=== PATIENT | female | born 1950 | race Caucasian/White ===

== ENCOUNTER 2020-10-24 15:52 | Emergency (ER) | payer MEDICARE, MEDICAID, SELFPAY ==
--- NOTE | ~2020-10-24 | XR_ITS ---
EXAMINATION: XR chest 2V DATE: 10/24/2020 16:58 INDICATION: Shortness of breath and chest pain. TECHNIQUE: Frontal and lateral views of the chest were obtained. COMPARISON: Chest 2 views 09/24/2019 FINDINGS: There is mild scarring at the lung apices. No pleural effusion or pneumothorax. The heart s ize is normal. IMPRESSION: 1. Mild scarring at the lung apices. Reviewed, dictated and finalized at location A. [facility]
--- NOTE | 2020-10-24 15:59 | ED.GENADULT ---
HPI - General Adult General Chief complaint: Shortness of Breath/Dyspnea Stated complaint: COPD Flair Time Seen by Provider: 10/24/20 15:59 Source: patient Mode of arrival: ambulatory Limitations: no limitations History of Present Illness HPI narrative: 70-year-old female patient presents to the [facility] with complaints of shortness of breath for the past week. Patient states she quit smoking about a week and half ago. Patient does have history of COPD. Patient states she has had a cough and does cough some stuff up at times. Patient states she has an inhaler along with a breathing machine at home that she has been using but has not been helping. Patient does also report some chest pain in the middle of her chest and states that her chest does hurt when taking in a deep breath. Patient states that she was out shopping today and states that when she was up walking around she got even more short of breath and states she could barely make it back to her car. Denies any contact with [employer] that she is aware of. Patient does not report having Covid the last 3 months. Related Data Home Medications Medication Instructions Recorded Confirmed alendronate [Fosamax] 70 mg PO WEEKLY 09/24/19 10/24/20 budesonide-formoterol [Symbicort] 2 puff INHALATION Q12H 09/24/19 10/24/20 buspirone 10 mg PO BID 09/24/19 10/24/20 cyanocobalamin (vitamin B-12) 100 mcg PO DAILY 09/24/19 10/24/20 diclofenac sodium 75 mg PO BID 09/24/19 10/24/20 hydrocodone-acetaminophen [[place]] 1 tablet PO HS PRN 09/24/19 10/24/20 lisinopril 2.5 mg PO DAILY 09/24/19 10/24/20 metformin 850 mg PO BID 09/24/19 10/24/20 metoprolol tartrate [Lopressor] 100 mg PO Q12H 09/24/19 10/24/20 mometasone [Elocon] 1 applic TOPICAL DAILY 09/24/19 10/24/20 sertraline 50 mg PO DAILY 09/24/19 10/24/20 simvastatin 40 mg PO DAILY 09/24/19 10/24/20 suvorexant 20 mg PO HS 09/24/19 10/24/20 tiotropium bromide [Spiriva with 1 cap INHALATION DAILY 09/24/19 10/24/20 HandiHaler] trazodone 50 mg PO HS PRN 09/24/19 10/24/20 cyclobenzaprine 10 mg PO DAILY 10/24/20 10/24/20 gabapentin 300 mg PO DAILY 10/24/20 10/24/20 meloxicam 15 mg PO DAILY 10/24/20 10/24/20 trazodone 150 mg PO HS 10/24/20 10/24/20 varenicline [Chantix] 2 mg PO DAILY 10/24/20 10/24/20 venlafaxine 75 mg PO DAILY 10/24/20 10/24/20 venlafaxine 150 mg PO DAILY 10/24/20 10/24/20 Allergies Allergy/AdvReac Type Severity Reaction Status Date / Time No Known Allergies Allergy Verified 10/24/20 16:26 Review of Systems Review of Systems: Narrative: CONSTITUTIONAL: Denies fever, chills, or sweats. EYES: Denies visual changes, redness, or discharge. ENT: Denies rhinorrhea, congestion, sore throat, or otalgia. CARDIOVASCULAR: Positive nonradiating midsternal chest pain, denies palpitations, or edema. RESPIRATORY: Positive cough and dyspnea. GASTROINTESTINAL: Denies abdominal pain, nausea, vomiting, or diarrhea. GENITOURINARY: Denies dysuria or hematuria. SKIN: Denies rash or itching. MUSCULOSKELETAL: Denies back pain, joint pain, or myalgia. NEUROLOGIC: Denies headache, numbness, or weakness. PSYCHIATRIC: Denies anxiety or depression. [facility] Past Medical History Medical History COPD (chronic obstructive pulmonary disease) Comments At the time of my signature I agree with nursing past medical history, surgical, social, and family history. There is no relevant family history pertinent to the presenting complaint. Exam Narrative: Exam Narrative: GENERAL: Well-appearing, well-nourished, and in no acute distress. HEAD: Normocephalic, atraumatic. EYES: PERRLA and EOMI. ENT: Nares clear, no rhinorrhea or epistaxis. Mucous membranes moist. NECK: Supple. No lymphadenopathy CHEST: Patient has slight expiratory wheezing noted to the right upper lobe and right lower lobe. Patient is talking in broken sentences and does appear to have some labored breathing while sitting in the chair. HEART:
[2020-10-24 16:10] VITALS: BP 172/79; PULSE 91; RESP 28; TEMP 36.7; O2SAT 98
--- NOTE | 2020-10-24 16:26 | ECG_ITS ---
Measurements Intervals [place] Rate: 90 P: 48 FL: 141 QRS: -5 QRSD: 92 T: 18 QT: 378 QTc: 464 Interpretive Statements SINUS RHYTHM BORDERLINE T WAVE ABNORMALITY- INFERIOR LEADS BASELINE ARTIFACT- I, II, III, V6 BORDERLINE ECG Electronically Signed On 10-24-2020 19:18:45 [employer] CLERK by Ronak Coyne D.O.
[2020-10-24] MEDS: ALBUTEROL SULFATE NEB 2.5 MG/3 ML INH INHALATION (17:03)
[2020-10-24] MEDS: IPRATROPIUM BR 0.02% INH SOLN 0.5 MG/2.5 ML VIAL INHALATION (17:04)
[2020-10-24 17:35] VITALS: PULSE 90; RESP 20; O2SAT 98
[2020-10-25 18:46] LABS: SARS-CoV-2 RNA PCR Negative
== END 2020-10-24 17:45 | disposition home or self-care (01) ==
PROVIDERS: Emergency Provider Nurse Practitioner Family; PCP Nurse Practitioner Family
DX: J44.1 Chronic obstructive pulmonary disease with (acute) exacerbation (principal); Z20.822 Contact with and (suspected) exposure to COVID-19; E78.00 Pure hypercholesterolemia, unspecified; I10 Essential (primary) hypertension; K21.9 Gastro-esophageal reflux disease without esophagitis; F41.9 Anxiety disorder, unspecified
CPT/HCPCS: 71046; 87426; 93005; 94640; 99213; C9803; G0463; U0003; U0005

== ENCOUNTER 2021-10-13 15:40 | Emergency (ER) | payer MEDICARE, OTHER, SELFPAY ==
[2021-10-13 15:50] VITALS: BP 139/73; PULSE 80; RESP 20; TEMP 36.7; O2SAT 95
--- NOTE | 2021-10-13 16:54 | ED.URI ---
HPI - URI/Sore Throat General Chief Complaint: Upper Respiratory Infection Stated Complaint: cough sore throat runny nose Source: patient and family History of Present Illness HPI Narrative: Patient presents with a nonproductive cough no shortness of breath no chest pain and upper respiratory symptoms for the past week. Patient complains of a cough that is worse at night. He keeps her up. MD elicited complaint: cough Able to tolerate fluids by mouth: Yes Related Data Home Medications Medication Instructions Recorded Confirmed alendronate [Fosamax] 70 mg PO WEEKLY 09/24/19 10/24/20 budesonide-formoterol [Symbicort] 2 puff INHALATION Q12H 09/24/19 10/24/20 cyanocobalamin (vitamin B-12) 100 mcg PO DAILY 09/24/19 10/24/20 diclofenac sodium 75 mg PO BID 09/24/19 10/24/20 hydrocodone-acetaminophen [[place]] 1 tablet PO TID PRN 09/24/19 10/24/20 lisinopril 2.5 mg PO DAILY 09/24/19 10/24/20 metformin 850 mg PO BID 09/24/19 10/24/20 metoprolol tartrate [Lopressor] 100 mg PO Q12H 09/24/19 10/24/20 simvastatin 40 mg PO DAILY 09/24/19 10/24/20 tiotropium bromide [Spiriva with 1 cap INHALATION DAILY 09/24/19 10/24/20 HandiHaler] trazodone 50 mg PO HS PRN 09/24/19 10/24/20 Adults Multivitamin 1 tablet PO DAILY 10/24/20 10/24/20 Natural Vitamin E 1 tablet PO DAILY 10/24/20 10/24/20 Prilosec 20 mg PO DAILY 10/24/20 10/24/20 albuterol sulfate 2.5 mg INHALATION Q8H PRN 10/24/20 10/24/20 buspirone 15 mg PO DAILY 10/24/20 10/24/20 calcium carb and citrate-vitD3 1 tablet PO BID 10/24/20 10/24/20 cyclobenzaprine 10 mg PO DAILY 10/24/20 10/24/20 fluticasone propionate [Flonase] 2 spray INTRANASAL DAILY 10/24/20 10/24/20 gabapentin 300 mg PO DAILY 10/24/20 10/24/20 ipratropium bromide 0.5 mg INHALATION Q8H PRN 10/24/20 10/24/20 meloxicam 15 mg PO DAILY 10/24/20 10/24/20 milk thistle 150 mg PO DAILY 10/24/20 10/24/20 trazodone 150 mg PO HS 10/24/20 10/24/20 varenicline [Chantix] 2 mg PO DAILY 10/24/20 10/24/20 venlafaxine 75 mg PO DAILY 10/24/20 10/24/20 venlafaxine 150 mg PO DAILY 10/24/20 10/24/20 captopril 50 1 tablet PO DAILY 04/01/21 mg-hydrochlorothiazide 25 mg tablet clindamycin phosphate 1 % topical 1 applic TOPICAL DAILY 04/01/21 gel famotidine 20 mg tablet 20 mg PO DAILY 04/01/21 ketorolac 0.5 % eye drops 1 drp EACH EYE Q8H 04/01/21 methylprednisolone 4 mg tablets in See Rx Instructions PO PER PKG DIR 04/01/21 a dose pack naloxone 4 mg/actuation nasal spray 4 mg INTRANASAL Q2M 04/01/21 nicotine 10 mg/mL nasal spray 1 spray INTRANASAL Q10M 04/01/21 omeprazole 20 mg capsule,delayed 20 mg PO DAILY 04/01/21 release tizanidine 4 mg capsule 4 mg PO QHS 04/01/21 triamcinolone acetonide 55 mcg 1 spray INTRANASAL DAILY 04/01/21 nasal spray aerosol Allergies Allergy/AdvReac Type Severity Reaction Status Date / Time No Known Allergies Allergy Verified 10/13/21 16:12 Review of Systems Review of Systems: CONSTITUTIONAL: Denies chills, or sweats. Reports fever and generalized body aches EYES: Denies visual changes, redness, or discharge. ENT: Denies otalgia. Reports nasal congestion runny nose and sore throat CARDIOVASCULAR: Denies chest pain, palpitations, or edema. RESPIRATORY: Denies dyspnea. Reports occasional cough GASTROINTESTINAL: Denies abdominal pain, nausea, vomiting, or diarrhea. GENITOURINARY: Denies dysuria or hematuria. SKIN: Denies rash or itching. MUSCULOSKELETAL: Denies back pain, joint pain, or myalgia. Reports generalized body aches NEUROLOGIC: Denies headache, numbness, or weakness. PSYCHIATRIC: Denies anxiety or depression. [facility] Past Medical History Medical History (Updated 10/13/21 @ 16:57 by MARIA ISABEL Larry) COPD (chronic obstructive pulmonary disease) Surgical History Surgical History (Updated 04/01/21 @ 12:28 by Grecia Fair) Hx of hysterectomy Hx of tonsillectomy Social History Social History (Updated 04/01/21 @ 12:28 by Grecia Fair) Smoking status: Former smoker A
[2021-10-14 20:10] LABS: SARS-CoV-2 RNA PCR Positive
== END 2021-10-13 17:20 | disposition home or self-care (01) ==
PROVIDERS: Emergency Provider Nurse Practitioner Family; PCP Nurse Practitioner Family
DX: J32.9 Chronic sinusitis, unspecified (principal); J40 Bronchitis, not specified as acute or chronic; Z20.822 Contact with and (suspected) exposure to COVID-19; Z87.891 Personal history of nicotine dependence; J44.9 Chronic obstructive pulmonary disease, unspecified
CPT/HCPCS: 87081; 87804; 87880; 99213; C9803; G0463; U0003; U0005